=== PATIENT | male | born 1995 | race Two or more races ===

== ENCOUNTER 2022-05-28 12:26 | Emergency (ER) | payer OTHER ==
[~2022-05-28] VITALS: Ht 172.7 cm; Wt 81.6 kg
== END 2022-05-28 15:07 | disposition home or self-care (01) ==
LOC: ER 12:26
DX: S61.211A Laceration without foreign body of left index finger without damage to nail, initial encounter (principal); W45.8XXA Other foreign body or object entering through skin, initial encounter; Y93.89 Activity, other specified; Y92.89 Other specified places as the place of occurrence of the external cause; Y99.8 Other external cause status; Z91.013 Allergy to seafood

== ENCOUNTER 2023-07-19 09:00 | Emergency (ER) | payer OTHER ==
[~2023-07-19] VITALS: Ht 175.3 cm; Wt 86.2 kg
== END 2023-07-19 13:32 | disposition home or self-care (01) ==
LOC: ER 09:00
DX: S50.01XA Contusion of right elbow, initial encounter (principal); S90.31XA Contusion of right foot, initial encounter; S80.01XA Contusion of right knee, initial encounter; V29.99XA Rider (driver) (passenger) of other motorcycle injured in unspecified traffic accident, initial encounter; Y93.9 Activity, unspecified; Y92.413 State road as the place of occurrence of the external cause; Y99.9 Unspecified external cause status